=== PATIENT | male | born 1990 | race Caucasian/White ===

== ENCOUNTER 2024-12-19 06:01 | Emergency (ER) | payer OTHER, SELFPAY ==
[2024-12-19 06:03] VITALS: BP 136/80
[2024-12-19 06:21] VITALS: BP 124/73
[2024-12-19 06:29] VITALS: BMI 31.2
[2024-12-19 06:31] VITALS: BP 124/73
[2024-12-19 06:46] LABS: Hematocrit 42.7 % (39.0-52.0); Hemoglobin 15.3 g/dL (13.0-18.0); Mean Corp Hgb Conc. 35.8 g/dL (33.0-37.0); Mean Corpuscular Volume 86.4 fL (80.0-94.0); Nucleated Red Blood Cells % 0 % (-); Platelet Count 239 10^3/uL (130-400); Red Cell Dist. Width 12.0 % (11.5-14.5)
--- NOTE | 2024-12-19 06:53 | ED.GENMED ---
History of Present Illness
General
Chief Complaint: Chest Pain
Time Seen by Provider: 12/19/24 06:10
History of Present Illness
History of Present Illness:
34-year-old male with history of autism presenting to the emergency department for substernal chest pain. Patient reports that symptom started this morning. He went to a convenience store to get coffee. When he left the store, started to have
chest pain and said that his heart stopped for 5 seconds. He denies any syncopal episode. He denies any history of cardiac disease. The pain has overall improved. Denies fever or recent illness. Denies abdominal pain or GI symptoms. Denies
additional acute medical complaints
Past History
Past History
ED Past Medical History: Psychiatric
ED Past Surgical History: None
Phy Exam
Physical Exam
Physical Exam:
General: Well-appearing, no clinical signs of dehydration, nontoxic and in no acute distress
HEENT: protecting airway
Neck: appears supple
CV: Normal heart rate, regular rhythm
Resp: No accessory muscle use, no increased work of breathing, lungs clear to auscultation bilaterally
Abd: No distention
Extremities: No deformities, no swelling
Neuro: alert, no focal neurologic deficit
: deferred
Rectal: deferred
Psych: Normal affect
Skin: Intact
Scores
Heart Score for Chest Pain Patients
STEMI patient?: No
History: Slightly or Non-Suspicious
ECG: Normal
Age: </= 45 years
Risk Factors: No Risk Factors
Troponin: </= Normal Limit
Heart Score for Chest Pain Patients: 0
Heart Score Risk: 2.5% MACE over next 6 weeks
Course
Orders/Labs/Results
Orders:
Orders
12/19/24 06:06
ECG [Electrocardiogram (*1)] Urgent
Reason for Study: Chest Pain
EKG- Treatment ONCE
12/19/24 06:37
Complete Blood Count/With Diff Urgent
Comprehensive Metabolic Panel Urgent
Troponin I Urgent
Abnormal Lab Results
12/19/24
06:37
Abs Immat Gran (auto) 0.1 H 10^3/uL
(0-0.05)
Absolute Monos (auto) 0.7 H 10^3/uL
(0.1-0.6)
Immature Gran % 0.6 H %
(0-0.5)
12/19/24 06:37
Vital Signs
Initial and Last Documented VS:
Initial Vital Signs
Temp Pulse Resp BP Pulse Ox
98.2 F 90 20 136/80 98
12/19/24 06:03 12/19/24 06:03 12/19/24 06:03 12/19/24 06:03 12/19/24 06:03
Last Documented Vital Signs
Temp Pulse Resp BP Pulse Ox
98.2 F 89 23 124/73 98
12/19/24 06:03 12/19/24 06:31 12/19/24 06:31 12/19/24 06:31 12/19/24 06:57
MDM/Problems Addressed
MDM/Problems Addressed:
34-year-old male with history of autism presenting to the emergency department for chest pain. Vital signs on arrival are normal.
On exam patient is resting comfortably, no acute distress or discomfort. EKG obtained on arrival, nonischemic. Patient without any cardiac risk factors. Low suspicion for ACS at this time. Hemodynamically stable. Will plan for screening
laboratory analysis.
Labs unremarkable, undetectable troponin. Patient low risk by heart score. At this time remained stable and pain has improved. Feel stable for discharge with outpatient cardiology follow-up. Return precautions discussed and patient verbalized
understanding
*Pulse Oximetry
SaO2: 98
Oxygen Mode of Delivery: Room air
Patient hypoxic: no
*EKG
Interpreted by ED Provider?: Yes
EKG Intrepretation Date: 12/19/24
EKG Intrepretation Time: 06:55
Interpretation: normal
Comparison EKG: no comparison EKG present
Heart Rate: 86
Rate: normal
Rhythm: sinus
Humble: normal axis
Interval: normal interval
QRS Pattern: normal QRS
Ischemia: no ischemia
*Critical Care Note
Total Time (30-74mins, 75-104mins- exclusive of procedures): Not Applicable
ED Attending Note
-
Portions of this chart may have been created with voice recognition software.� Occasional wrong word or��sound alike� substitutions may have occurred due to the inherent limitations of voice recognition software.
Discharge Plan
Departure
Patient with high blood pressure during this ER visit?: No
Condition: Good
Discharge Problem:
Chest pain
Instructions: Chest pain - Discharge instructions
Prescriptions:
No Action
risperidone [Risperdal] 4 mg Tablet
4 mg PO DAILY
gabapentin 100 mg Capsule
100 mg PO DAILY
risperidone [Risperdal] 1 mg Tablet
1 mg PO HS
carbamazepine 400 mg Tablet Extended Release 12 Hr
400 mg PO HS
Referrals:
UNKNOWN - PT DOES,NOT KNOW [Family Provider]
Richar Leary, DO [Active, Cardiology]
Activity Restrictions/Additional Instructions:
You were seen in the emergency department for chest pain
You were found to have reassuring laboratory analysis and EKG. We recommend that you follow-up with cardiology.
Please follow-up closely with your primary care physician.
Return to the emergency department for any worsening of your symptoms, or any development of chest pain, difficulty breathing, abdominal pain with persistent vomiting and inability to tolerate food or liquid by mouth (concern for dehydration),
weakness, headache or confusion, fever greater than 100.4, or any additional symptoms that are concerning to you.
Thank you for choosing [facility].
Interventions
Interventions:
*Risk Screen - Suicide Last Done: 12/19/24 06:03
*General Assessment Last Done: 12/19/24 06:34
*Neglect/Abuse Screening Last Done: 12/19/24 06:03
*ED- Fall Risk Assessment Last Done: 12/19/24 06:34
Discharge Date and Time
Print Language: NEPALI
[2024-12-19 07:00] VITALS: BP 115/65
[2024-12-19 07:07] LABS: ALT (SGPT) 58 U/L (0-50); AST (SGOT) 37 U/L (17-59); Albumin 4.5 g/dl (3.5-5.0); Alkaline Phosphatase 56 U/L (38-126); Blood Urea Nitrogen 14 mg/dl (9-20); Calcium 9.3 mg/dl (8.4-10.2); Carbon Dioxide 27 mmol/L (22-30); Chloride 108 mmol/L (98-107); Estimated Creatinine Clearance 118 ml/min; Glucose 90 mg/dl (70-99); Potassium 4.1 mmol/L (3.5-5.1); Sodium 140 mmol/L (135-145); Total Protein 6.9 g/dl (6.3-8.2); eGFR > 60.00
[2024-12-19 07:17] LABS: Troponin I < 0.012 ng/ml
[2024-12-19 08:00] VITALS: BP 121/69
[2024-12-19 08:19] VITALS: BP 121/69
== END 2024-12-19 08:21 | disposition home or self-care (01) ==
LOC: EMR 06:01
PROVIDERS: EMERGENCY PHYSICIAN Student in an Organized Health Care Education/Training Program
DX: R07.89 Other chest pain (principal); F84.0 Autistic disorder
CPT/HCPCS: 99283; 80053; 84484; 85025; 93005

== ENCOUNTER → 2025-01-23 14:02 | Outpatient (REF) | payer OTHER, SELFPAY | LOC: HWRAD 14:02 | PROVIDERS: ATTENDING PHYSICIAN Student in an Organized Health Care Education/Training Program | DX: R06.2 Wheezing (principal); W34.00XA Accidental discharge from unspecified firearms or gun, initial encounter | CPT/HCPCS: 71046; 73590 ==